=== PATIENT | male | born 1955 | race Caucasian/White ===

== ENCOUNTER 2018-10-04 11:37 | Day surgery (SDC) | payer BC ==
[~2018-10-04 11:37] MED LIST: Sodium Chloride 0.9% 1,000 ML IV SCH
--- NOTE | 2018-10-04 20:25 | OR ---
DATE OF OPERATION: 10/04/2018 PREOPERATIVE DIAGNOSIS: Epigastric pain. POSTOPERATIVE DIAGNOSIS: Epigastric pain. PROCEDURE: EGD. ANESTHESIA: MAC. ESTIMATED BLOOD LOSS: None. COMPLICATIONS: None. INDICATION FOR PROCEDURE: The patient is a 63-year-old male who over the past several months has had increasing epigastric pain, usually preceded with exercise. The patient does take a Zantac daily. He apparently takes other antacids as well with some minimal relief. The patient has also had a recent cardiac stent and is currently on Plavix. DESCRIPTION OF PROCEDURE: Informed consent was obtained from the patient. The patient was taken to the operating room, placed on table in the left lateral decubitus position. Monitored general anesthesia care was administered. Esophagus scope then advanced through the mouth, directed towards the duodenum. Second portion of duodenum was reached. The patient did have some moderate duodenitis in the bulb and second portions of the duodenum. No biopsies were taken due to the Plavix. The patient did have some mild gastritis present as well. No bleeding ulcers identified in either duodenum or stomach. Retroflexion performed in the stomach and was unremarkable there. Distal esophagus also appeared normal. No signs of esophagitis there. Gastroscope was then withdrawn slowly. The patient tolerated the procedure well and was brought to recovery room in good condition. FINDINGS: Moderate duodenitis and mild gastritis. RECOMMENDATIONS: We will start omeprazole daily for the next 2 months. The patient continues to have problems, would recommend EGD once the patient is able to be off Plavix for biopsies at that time. KAIDEN /[id number]
== END 2018-10-04 15:40 | disposition home or self-care (01) ==
LOC: LB.SDS 11:37
PROVIDERS: ATTEND Surgery
DX: K29.70 Gastritis, unspecified, without bleeding (principal); K29.80 Duodenitis without bleeding; K21.9 Gastro-esophageal reflux disease without esophagitis; Z79.899 Other long term (current) drug therapy; Z91.013 Allergy to seafood; Z91.048 Other nonmedicinal substance allergy status
CPT/HCPCS: 82962; J7030

== ENCOUNTER 2019-03-15 10:43 | Emergency (ER) | payer BC ==
--- NOTE | 2019-03-15 12:01 | EDM.PDOC ---
ED HPI GENERAL MEDICAL PROBLEM - General Chief Complaint: Abdominal Pain Stated Complaint: ILL Time Seen by Provider: 03/15/19 10:45 Source of Information: Reports: Patient History Limitations: Reports: No Limitations - History of Present Illness INITIAL COMMENTS - FREE TEXT/NARRATIVE: According to patient he has been having epigastric pain on and off for past 6 months now, but over the past 1 wk has got worse. pain is in the epigastric region and radiates into the right upper quadrant. Gets very sharp at times. Asso with some heart green and belching. Some times feels nausea, but no vomiting. No radiation of pain. rates his pain at 6/10 now in the emergency room. He has not noticed any change in pain with food intake. No chest pain, shortness of breath, diaphoresis. He does have CAD. He claims he does have loose stools on and off. He did have upper GI scope and was noted to have some duodenal erosions, but biopsy not duodenum to him being on Plavix. Onset Date: 03/08/19 Duration: Getting Worse, Waxing/Waning Location: Reports: Abdomen Quality: Reports: Ache Severity: Moderate Improves with: Reports: None Worsens with: Reports: None Associated Symptoms: Reports: Nausea/Vomiting. Denies: Confusion, Chest Pain, Cough, Diaphoresis, Fever/Chills, Loss of Appetite, Rash, Seizure, Shortness of Breath, Syncope, Weakness - Related Data Allergies Allergy/AdvReac Type Severity Reaction Status Date / Time iodine Allergy Anaphylactic Verified 03/15/19 10:55 Shock shellfish derived Allergy Anaphylactic Verified 03/15/19 10:55 Shock Home Meds: Home Meds Aspirin [Lise Chewable] 81 mg PO DAILY 07/13/18 [History] Clopidogrel Bisulfate [Clopidogrel] 75 mg PO DAILY 07/13/18 [History] Lisinopril 20 mg PO DAILY 07/13/18 [History] Metoprolol Tartrate 50 mg PO BID 07/13/18 [History] Omeprazole 20 mg PO DAILY 03/15/19 [History] Past Medical History HEENT History: Reports: Impaired Vision Cardiovascular History: Reports: High Cholesterol, Hypertension, Stents Gastrointestinal History: Reports: GERD Musculoskeletal History: Reports: Back Pain, Chronic Neurological History: Reports: None Endocrine/Metabolic History: Reports: Diabetes, Type II - Past Surgical History HEENT Surgical History: Reports: None Cardiovascular Surgical History: Reports: Coronary Artery Stent GI Surgical History: Reports: None Neurological Surgical History: Reports: C-Spine, Discectomy Musculoskeletal Surgical History: Reports: None Social & Family History - Family History Family Medical History: Noncontributory - Caffeine Use Caffeine Use: Reports: Coffee, Soda ED ROS GENERAL - Review of Systems Review Of Systems: See Below Constitutional: Reports: Weakness. Denies: Fever, Chills, Diaphoresis HEENT: Denies: Contact Lenses, Rhinitis, Throat Pain Respiratory: Denies: Shortness of Breath, Pleuritic Chest Pain, Cough, Sputum Cardiovascular: Denies: Chest Pain, Lightheadedness Endocrine: Denies: Fatigue GI/Abdominal: Reports: Abdominal Pain, Diarrhea, Flatus, Nausea. Denies: Constipation, Hematemesis, Hematochezia, Melena, Vomiting : Denies: Dysuria, Frequency Musculoskeletal: Denies: Joint Pain, Joint Swelling Skin: Denies: Bruising, Pruritis, Rash Neurological: Denies: Confusion, Dizziness, Headache, Numbness, Tingling ED EXAM, GENERAL - Physical Exam Exam: See Below Exam Limited By: No Limitations General Appearance: Alert, WD/WN, No Apparent Distress Eye Exam: Bilateral Eye: EOMI, PERRL Ears: Normal External Exam, Normal Canal, Hearing Grossly Normal, Normal TMs Ear Exam: Bilateral Ear: Auricle Normal, Canal Normal, TM normal Nose: Normal Inspection, Normal Mucosa, No Blood Throat/Mouth: Normal Inspection, Normal Lips, Normal Teeth, Normal Gums, Normal Oropharynx, Normal Voice, No Airway Compromise Head: Atraumatic, Normocephalic Neck: Normal Inspection, Supple, Non-Tender, Full Range of Motion Respiratory/Chest: No Respiratory Distress, Lungs Clear, Normal Breath Sounds, No Accessory Muscle Use, Chest Non-Tender Cardiovascular: Normal Peripheral Pulses, Regular Rate, Rhythm, No Edema, No Gallop, No JVD, No Murmur, No Rub GI/Abdominal: Normal Bowel Sounds, Soft, No Organomegaly, No Distention, No Abnormal Bruit, No Mass, Pelvis Stable, Tender (epigastirc region and the RUQ at the right MCL. No mass felt.). No: Guarding, Rigid, Rebound EKG INTERPRETATION Rhythm: NSR [employer]: Normal P-Wave: Present QRS: Normal QT: Normal Course - Vital Signs Text/Narrative:: Pt has chronic epigastric pain for 9 months, which has got worse over the past 1 wk. Most of the pain description is in the epigastric region with radiation to right upper quadrant. On clinical exam he does have RUQ at the right MCL. This is consistent with gall bladder colic. Pt does have significant history of CAD hence EKG was done which is in NSR. Also CBC, CMP and troponin are negative, and this has been worsening epigastric pain for 1 wk now, rule out acute cardiac injury. His CT abdomen is shows gall bladder stones. I have discussed with patietn. Advised to stay on bland low fat diet. Followup with Dr. Muñoz( general surgeon) for interval lap cholecystectomy . There are no acute abdominal signs. For now advised bland low fat diet. - Orders/Labs/Meds Orders: Active Orders 24 hr Category Date Time Status EKG Documentation Completion [RC] ASDIRECTED Care 03/15/19 11:04 Active Labs: Laboratory Tests 03/15/19 03/15/19 Range/Units 11:25 11:25 WBC 7.3 (4.0-11.0) K/uL RBC 4.76 (4.50-6.50) M/uL Hgb 14.9 (13.0-18.0) g/dL Hct 43.3 (40.0-54.0) % MCV 91 (76-96) fL MCH 31.3 (27.0-32.0) pg MCHC 34.4 (31.0-35.0) g/dL RDW 14.2 (11.0-16.0) % Plt Count 160 (150-400) K/uL MPV 11.0 H (6.0-10.0) fL Neut % (Auto) 65.3 (45.0-70.0) % Lymph % (Auto) 25.4 (20.0-40.0) % Hancock % (Auto) 7.3 (3.0-10.0) % Eos % (Auto) 1.7 (1.0-5.0) % Baso % (Auto) 0.3 (0.0-0.5) % Neut # (Auto) 4.74 (2.00-7.50) K/uL Lymph # (Auto) 1.84 (1.50-4.00) K/uL Hancock # (Auto) 0.53 (0.20-0.80) K/uL Eos # (Auto) 0.12 (0.04-0.40) K/uL Baso # (Auto) 0.02 (0.02-0.10) K/uL Sodium 139 (136-145) mmol/L Potassium 4.4 (3.5-5.1) mmol/L Chloride 102 (98-107) mmol/L Carbon Dioxide 27.6 (21.0-32.0) mmol/L Anion Gap 13.8 (5.0-15.0) mmol/L BUN 14 D (8-26) mg/dL Creatinine 1.07 (0.70-1.30) mg/dL Est Cr Clr Drug Dosing TNP Estimated GFR (MDRD) > 60 (>60) MLS/MIN BUN/Creatinine Ratio 13.1 (6-25) Glucose 121 H (74-100) mg/dL Calcium 9.5 (8.5-10.1) mg/dL Total Bilirubin 0.4 (0.0-1.0) mg/dL AST 17 (15-37) U/L ALT 33 (12-78) U/L Alkaline Phosphatase 67 (46-116) U/L Troponin I < 0.017 (0.000-0.060) ng/mL Total Protein 8.4 H (6.4-8.2) g/dL Albumin 4.2 (3.4-5.0) g/dL Globulin 4.2 (2.2-4.2) g/dL Albumin/Globulin Ratio 1.0 (0.8-2.0) Lipase 212 D (73-393) U/L Departure - Departure Time of Disposition: 12:15 Disposition: Home, Self-Care 01 Condition: Fair Clinical Impression: Gall stones - Discharge Information *PRESCRIPTION DRUG MONITORING PROGRAM REVIEWED*: Not Applicable *COPY OF PRESCRIPTION DRUG MONITORING REPORT IN PATIENT FELIPA: Not Applicable Instructions: Heart-Healthy Eating Plan, [id number], Cholelithiasis, Easy-to- Read, Cholelithiasis, Laparoscopic Cholecystectomy Referrals: PCP,None [Primary Care Provider] - Forms: ED Department Discharge, ED Return to Work/School Form - Problem List & Annotations (1) Gall stones SNOMED Code(s): 832343453 Code(s): K80.20 - CALCULUS OF GALLBLADDER W/O CHOLECYSTITIS W/O OBSTRUCTION Status: Acute Current Visit: Yes - Problem List Review Problem List Initiated/Reviewed/Updated: Yes - My Orders Last 24 Hours: My Active Orders 03/15/19 11:04 EKG Documentation Completion [RC] ASDIRECTED - Assessment/Plan Last 24 Hours: My Active Orders 03/15/19 11:04 EKG Documentation Completion [RC] ASDIRECTED Assessment:: Gall stones with gall bladder colic Plan: Pt has chronic epigastric pain for 9 months, which has got worse over the past 1 wk. Most of the pain description is in the epigastric region with radiation to right upper quadrant. On clinical exam he does have RUQ at the right MCL. This is consistent with gall bladder colic. Pt does have significant history of CAD hence EKG was done which is in NSR. Also CBC, CMP and troponin are negative, and this has been worsening epigastric pain for 1 wk now, rule out acute cardiac injury. His CT abdomen is shows gall bladder stones. I have discussed with pradeepn. Advised to stay on bland low fat diet. Followup with Dr. Muñoz( general surgeon) for interval lap cholecystectomy . There are no acute abdominal signs. For now advised bland low fat diet.
--- NOTE | 2019-03-15 12:18 | CT ---
DATE OF SERVICE: 03/15/2019 CLINICAL DATA: Epigastric pain Unenhanced abdomen CT: Multislice acquisition through the abdomen without IV or oral contrast was performed. No priors. The lung bases are clear. There are minimal coronary artery calcifications. The unenhanced liver appears normal. No focal hepatic lesions. There are multiple gallstones noted in the region of the neck of the gallbladder. The gallbladder is not distended. No pericholecystic fluid. The spleen appears normal. The pancreas appears normal. The right and left adrenals appear normal. The right and left kidneys appear normal. No nephrocalcinosis or nephrolithiasis. No hydronephrosis or hydroureter. No free air. No free fluid. No dilated loops of bowel. No adenopathy. No aortic aneurysm. There is an umbilical hernia containing fat. Impression: Cholelithiasis. Other findings as discussed above. MTDD
== END 2019-03-15 12:18 | disposition home or self-care (01) ==
LOC: LB.ED 10:43
DX: K80.20 Calculus of gallbladder without cholecystitis without obstruction (principal); I10 Essential (primary) hypertension; K21.9 Gastro-esophageal reflux disease without esophagitis; E11.9 Type 2 diabetes mellitus without complications; Z79.82 Long term (current) use of aspirin; Z79.899 Other long term (current) drug therapy; Z91.013 Allergy to seafood; Z88.8 Allergy status to other drugs, medicaments and biological substances; Z95.5 Presence of coronary angioplasty implant and graft
CPT/HCPCS: 36415; 74150; 80053; 83690; 84484; 85025; 93005; 99284-25

== ENCOUNTER 2019-08-08 08:53 | Day surgery (SDC) | payer BC ==
[~2019-08-08 08:53] MED LIST changes: +Metoclopramide 10 MG/2 ML SDV IV PRN
[2019-08-08] MEDS ORDERED: Propofol 1,000 MG/100 ML SDV ONE (11:00)
[2019-08-08 11:50] VITALS: BP 116/75; PULSE 63
--- NOTE | 2019-08-08 12:30 | OR ---
DATE OF OPERATION: 08/08/2019 SURGEON: Luis Fernando Thomason MD PREOPERATIVE DIAGNOSES: Screening colonoscopy and epigastric pain. POSTOPERATIVE DIAGNOSES: Screening colonoscopy and epigastric pain. PROCEDURE: Esophagogastroduodenoscopy with biopsy and colonoscopy with polypectomy. ESTIMATED BLOOD LOSS: Minimal. COMPLICATIONS: None. ANESTHESIA: MAC. INDICATIONS FOR THE PROCEDURE: The patient is a 63-year-old male here today for EGD and colonoscopy. He has never had a colonoscopy before. Denies any change in bowel habits. Also here for a repeat EGD. Last had an EGD about 10 months ago, was found to have duodenitis and gastritis, was on Plavix at the time, so no biopsies taken. The patient is now complaining of recurrent epigastric pain. He is here for repeat EGD. DESCRIPTION OF PROCEDURE: Informed consent was obtained from the patient. The patient was taken to the operating room, placed on the table in a left lateral decubitus position. Monitored anesthesia care was administered. Esophagogastroscope then advanced through the mouth, directed toward the duodenum. Duodenum was reached and appeared normal. No signs of inflammation. No ulcers. Cold forceps biopsy of this was taken here to check for celiac disease. Withdrew back into the gastric antrum. Gastric antrum also appeared to be normal. No signs of gastritis. No ulcers present. The cold forceps biopsy here was taken for check for H pylori. Retroflexion performed in the stomach was also otherwise unremarkable. On the way out, distal esophagus also was unremarkable. No signs of esophagitis. No signs of hiatal hernia. Esophagogastroscope then withdrawn. We then proceeded with colonoscopy. Digital rectal exam performed and was normal. Colonoscope then advanced through the anus, directed toward the cecum. Cecum was reached by identification of appendiceal orifice and ileocecal valve. Colonoscope then slowly withdrawn. He did have 1 small pedunculated polyp just inside the anus. This was removed with hot snare cautery and the polyp was retrieved. At the end of the case, the patient tolerated the procedure well and was brought to recovery room in good condition. FINDINGS: Normal EGD. We will follow up on biopsies. Would recommend to continue current medications for that. For his colonoscopy, we would recommend repeat surveillance colonoscopy in 5 years due to polyps. CASSANDRA/MARTIR /[id number]
== END 2019-08-08 12:45 | disposition home or self-care (01) ==
LOC: LB.SDS 08:53
PROVIDERS: ATTEND Surgery
DX: Z12.11 Encounter for screening for malignant neoplasm of colon (principal); D12.7 Benign neoplasm of rectosigmoid junction; K29.50 Unspecified chronic gastritis without bleeding; K21.9 Gastro-esophageal reflux disease without esophagitis; E11.9 Type 2 diabetes mellitus without complications; Z91.013 Allergy to seafood; Z88.5 Allergy status to narcotic agent; Z91.041 Radiographic dye allergy status
CPT/HCPCS: 43239; 43246; 45385; 82962; 88305; G0121; J2704

== ENCOUNTER 2019-09-06 08:32 | Emergency (ER) | payer BC ==
--- NOTE | 2019-09-06 09:41 | CR ---
DATE OF SERVICE: 09/06/19 CLINICAL DATA: Chest pain. AP CHEST: Comparison made to a prior exam dated 03/12/19. The heart size is normal. There is a calcified nodule in the left lower lung consistent with prior granulomatous disease. The lungs otherwise clear. No pneumothorax. No pleural effusions. No evidence of acute intrathoracic disease. [id number] [facility]
--- NOTE | 2019-09-06 13:55 | ER ---
REASON FOR EMERGENCY ROOM VISIT: Chest pain. HISTORY: This is a 63-year-old man, who has a history of coronary artery disease with stenting of a single LAD lesion in March of 2018. He was brought in by his after experiencing an episode of chest pain that initially woke him up approximately 1-1/2 hours prior to his ER visit. It was initially located in the lower anterior substernal and epigastric area and only lasted a few minutes and spontaneously resolved only to return about a half an hour later. His , who is a registered nurse, gave him sublingual nitroglycerin and his pain waned. By the time he arrived in the emergency room, he was not experiencing any more chest pain. He did not have any nausea or diaphoresis. The pain did not radiate down his arm. The patient had a normal stress test in last December. PAST MEDICAL HISTORY: Significant for; 1. Coronary artery disease with stenting (see above). 2. Hypertension. 3. GERD. 4. History of duodenal ulcer or gastritis. 5. Type 2 diabetes. 6. Hypercholesterolemia. 7. Cholecystectomy for cholelithiasis in March of 2019. MEDICATIONS: Reviewed, please see EMR. They include; 1. Lisinopril. 2. Omeprazole. 3. Baby aspirin. 4. Metoprolol. SOCIAL HISTORY: He is a nonsmoker. Drinks occasionally and lives at home with his . REVIEW OF SYSTEMS: Pertinent positives and negatives as listed in the HPI. PHYSICAL EXAMINATION: GENERAL: He is alert and in no acute distress. He does not appear diaphoretic. VITAL SIGNS: He is afebrile. Blood pressure 135/85, pulse 66, respirations 18, O2 sats 99% on room air. HEENT: No scleral icterus is noted. Oropharynx is normal. NECK: Supple. No JVD. CHEST: Clear to auscultation with good air exchange bilaterally and no wheezes, rhonchi, or rales. CARDIAC: Regular rate without murmur. No rub is heard. ABDOMEN: Soft, nondistended, nontender. No hepatosplenomegaly. No palpable masses. EXTREMITIES: Normal pulses. No edema. NEUROLOGIC: Cranial nerves 2 through 12 intact. Muscle strength, bulk, and tone are normal and symmetrical. He is able to move all 4 extremities. Sensation is normal to crude touch. SKIN: No rashes. LABORATORY DATA: CBC was within normal limits. His CMP was normal except for his glucose that was elevated at 144. His troponin 1 was less than 0.013. A 12-lead EKG showed a normal sinus rhythm with a right bundle branch block, but no acute changes. His chest x-ray was unremarkable with no active pulmonary disease. FURTHER EMERGENCY ROOM COURSE: He continued to be pain-free throughout his time in the emergency room. He was given 3 additional baby aspirin upon arrival and the above-mentioned labs were obtained. Impression is chest pain, resolved. 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 Given his normal troponin and EKG and the absence of any existing chest pain, I felt it was sensible to arrange for him to have a stress test, and a followup with either his provider, Dr. Lugo or a drive thru order taker if the drive thru order taker will be here for consultations in a fairly short period of time. His being a registered nurses, can monitor him and certainly she knows that if should he have recurrent episodes of pain, to bring him back. All questions were answered. I think the sensible thing at this juncture would be to have him followed with his drive thru order taker after stress testing and this is being arranged. They understand and agree with this plan. WILFREDO /[id number]
[2019-09-11] MEDS ORDERED: Aspirin 81 MG Tab.Chew PO ONE (07:50)
== END 2019-09-06 10:00 | disposition home or self-care (01) ==
LOC: LB.ED 08:32
DX: R07.9 Chest pain, unspecified (principal); I10 Essential (primary) hypertension; E11.9 Type 2 diabetes mellitus without complications
CPT/HCPCS: 36415; 71045; 80053; 84484; 85025; 93005; 99285-25

== ENCOUNTER 2019-12-21 16:33 | Observation (INO) | payer BC ==
[2019-12-21] MEDS ORDERED: Aspirin 81 MG Tab.Chew PO ONE (16:56)
[2019-12-21] MEDS ORDERED: Sodium Chloride 0.9% 10 ML Syringe FLUSH PRN (16:56)
[2019-12-21] MEDS ORDERED: Isosorbide Mononitrate 30 MG Tab.ER PO ONE (18:03)
[2019-12-21] MEDS ORDERED: Metoprolol Tartrate 50 MG Tab PO SCH (18:15)
[2019-12-21] MEDS: Metoprolol Tartrate 50 MG Tab PO SCH (20:02)
[2019-12-22] MEDS ORDERED: Omeprazole 20 MG Cap.CR PO SCH (08:00)
[2019-12-22] MEDS ORDERED: Isosorbide Mononitrate 30 MG Tab.ER PO SCH (08:00)
[2019-12-22] MEDS ORDERED: Lisinopril 20 MG Tab PO SCH (08:00)
[2019-12-22] MEDS: Metoprolol Tartrate 50 MG Tab PO SCH (08:16)
--- NOTE | 2019-12-22 09:52 | CR ---
DATE OF SERVICE: 12/21/19 CLINICAL DATA: chest pain PA AND LATERAL CHEST: Comparison is made to a prior exam dated 09/06/19. The heart size is normal. There is a densely calcified nodule in the left lower lobe, consistent with prior granulomatous disease. The lungs are otherwise clear. No pneumothorax. No pleural effusions. There is degenerative disc disease throughout the thoracic spine. No evidence of acute intrathoracic disease. [id number] [facility]
[2019-12-22] MEDS ORDERED: Metoprolol Tartrate 50 MG Tab PO SCH (20:00)
--- NOTE | 2019-12-23 07:51 | EDM.PDOC ---
ED HPI GENERAL MEDICAL PROBLEM - General Chief Complaint: General Stated Complaint: CHEST PAIN Time Seen by Provider: 12/21/19 16:40 Source of Information: Reports: Patient History Limitations: Reports: No Limitations - History of Present Illness INITIAL COMMENTS - FREE TEXT/NARRATIVE: Patient is a 64 yo white male with history of CAD and stenting in March of 2017 presents with history of chest pain at times for years that he describes as a sharp pain that last for 2-3 seconds . Typically he rates pain 3-4/10. Today had episode of sharp pain then developed chest pressure type pain in left side of his chest that lasted for 45 minutes until he took a Ntg tablet sl. Tokk several minutes to dissolve under his tongue but pain cleared within ten minutes of taking ntg . Pain cleared at time of arrival in the ED. No pain or pressure at time of arrival or during evaluation in the ED. 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 Abdominal Pain Score (Numeric/FACES): 2 - Related Data Allergies Allergy/AdvReac Type Severity Reaction Status Date / Time iodine Allergy Anaphylactic Verified 12/21/19 18:34 Shock shellfish derived Allergy Anaphylactic Verified 12/21/19 18:34 Shock Home Meds: Home Meds Aspirin [Lise Chewable] 81 mg PO DAILY 07/13/18 [History] Metoprolol Tartrate 50 mg PO BID 07/13/18 [History] Omeprazole 20 mg PO DAILY 03/15/19 [History] lisinopriL [Lisinopril] 20 mg PO DAILY 09/06/19 [History] Past Medical History HEENT History: Reports: Impaired Vision Cardiovascular History: Reports: High Cholesterol, Hypertension, Stents Gastrointestinal History: Reports: GERD Musculoskeletal History: Reports: Back Pain, Chronic Neurological History: Reports: None Endocrine/Metabolic History: Reports: Diabetes, Type II - Past Surgical History HEENT Surgical History: Reports: None Cardiovascular Surgical History: Reports: Coronary Artery Stent GI Surgical History: Reports: None Neurological Surgical History: Reports: C-Spine, Discectomy Musculoskeletal Surgical History: Reports: None Social & Family History - Family History Family Medical History: Noncontributory - Tobacco Use Smoking Status *Q: Former Smoker Used Tobacco, but Quit: Yes Month/Year Tobacco Last Used: 2010 - Caffeine Use Caffeine Use: Reports: Coffee, Soda - Alcohol Use Days Per Week of Alcohol Use: 3 Number of Drinks Per Day: 1 Total Drinks Per Week: 3 - Recreational Drug Use Recreational Drug Use: No ED ROS GENERAL - Review of Systems Review Of Systems: See Below Constitutional: Denies: Fever, Chills, Malaise HEENT: Reports: No Symptoms Respiratory: Denies: Shortness of Breath, Wheezing, Cough Cardiovascular: Reports: Chest Pain. Denies: Lightheadedness, Palpitations, Syncope Endocrine: Denies: Fatigue GI/Abdominal: Denies: Abdominal Pain, Nausea, Vomiting : Denies: Dysuria, Flank Pain, Frequency Musculoskeletal: Reports: No Symptoms Skin: Reports: No Symptoms Neurological: Reports: No Symptoms Psychiatric: Reports: No Symptoms Hematologic/Lymphatic: Reports: No Symptoms Immunologic: Reports: No Symptoms ED EXAM, GENERAL - Physical Exam Exam: See Below General Appearance: Alert, WD/WN, No Apparent Distress Ears: Normal External Exam Nose: Normal Inspection, Normal Mucosa, No Blood Throat/Mouth: Normal Inspection, Normal Lips, Normal Oropharynx Head: Atraumatic, Normocephalic Neck: Normal Inspection, Supple, Other Respiratory/Chest: No Respiratory Distress, Lungs Clear, Normal Breath Sounds, Chest Non-Tender Cardiovascular: Normal Peripheral Pulses, Regular Rate, Rhythm, No Edema, No JVD , No Murmur GI/Abdominal: Soft, Non-Tender, No Distention, No Mass, Pelvis Stable Rectal (Males) Exam: Normal Exam Back Exam: Normal Inspection, Full Range of Motion, Decreased Range of Motion. No: CVA Tenderness (R) Extremities: Normal Inspection, Normal Range of Motion, Non-Tender, No Pedal Edema Neurological: Alert, Oriented, Normal Cognition, Normal Gait, No Motor/Sensory Deficits Psychiatric: Normal Affect, Normal Mood Skin Exam: Warm, Dry, Intact, Normal Color Lymphatic: No Adenopathy EKG INTERPRETATION EKG Date: 12/21/19 Time: 17:00 Rhythm: NSR P-Wave: Present QRS: Normal QT: Normal NE/PQ Interval: 176 Comparison: No Change (NS/RBBB, No acute infarct or ischemia) Course - Vital Signs Last Recorded V/S: Last Vital Signs Temp 97.9 F 12/22/19 08:15 Pulse 68 12/22/19 08:16 Resp 18 12/22/19 08:15 BP 117/82 12/22/19 08:17 Pulse Ox 97 12/22/19 08:15 - Orders/Labs/Meds Labs: Laboratory Tests 12/21/19 12/21/19 12/21/19 Range/Units 17:00 17:00 17:00 WBC 8.1 (4.0-11.0) K/uL RBC 4.69 (4.50-6.50) M/uL Hgb 14.7 (13.0-18.0) g/dL Hct 42.2 (40.0-54.0) % MCV 90 (76-96) fL MCH 31.3 (27.0-32.0) pg MCHC 34.8 (31.0-35.0) g/dL RDW 13.8 (11.0-16.0) % Plt Count 183 (150-400) K/uL MPV 11.0 H (6.0-10.0) fL Neut % (Auto) 66.1 (45.0-70.0) % Lymph % (Auto) 25.3 (20.0-40.0) % [place] % (Auto) 7.3 (3.0-10.0) % Eos % (Auto) 1.2 (1.0-5.0) % Baso % (Auto) 0.1 (0.0-0.5) % Neut # (Auto) 5.37 (2.00-7.50) K/uL Lymph # (Auto) 2.06 (1.50-4.00) K/uL [place] # (Auto) 0.59 (0.20-0.80) K/uL Eos # (Auto) 0.10 (0.04-0.40) K/uL Baso # (Auto) 0.01 L (0.02-0.10) K/uL PT 11.1 (9.0-11.5) sec INR 1.1 (1.0-3.5) Sodium 141 (136-145) mmol/L Potassium 4.0 (3.5-5.1) mmol/L Chloride 104 (98-107) mmol/L Carbon Dioxide 23.6 (21.0-32.0) mmol/L Anion Gap 17.4 H (5.0-15.0) mmol/L BUN 15 (8-26) mg/dL Creatinine 1.28 (0.70-1.30) mg/dL Est Cr Clr Drug Dosing 63.15 mL/min Estimated GFR (MDRD) 56 L (>60) MLS/MIN BUN/Creatinine Ratio 11.7 (6-25) Glucose 144 H (74-100) mg/dL Calcium 9.3 (8.5-10.1) mg/dL Total Bilirubin 0.5 (0.0-1.0) mg/dL AST 17 (15-37) U/L ALT 33 (12-78) U/L Alkaline Phosphatase 59 (46-116) U/L Troponin I < 0.017 (0.000-0.060) ng/mL Total Protein 8.0 (6.4-8.2) g/dL Albumin 4.1 (3.4-5.0) g/dL Globulin 3.9 (2.2-4.2) g/dL Albumin/Globulin Ratio 1.1 (0.8-2.0) Meds: Medications Discontinued Medications Generic Name Dose Route Start Last Admin Trade Name Freq PRN Reason Stop Dose Admin Aspirin 324 mg 12/21/19 16:56 12/21/19 16:51 Aspirin PO 12/21/19 16:57 324 mg ONETIME ONE Administration Aspirin 81 mg 12/23/19 08:00 Aspirin PO DAILY [facility] Isosorbide Mononitrate 30 mg 12/21/19 18:03 12/21/19 18:37 Imdur PO 12/21/19 18:04 30 mg ONETIME ONE Administration Isosorbide Mononitrate 30 mg 12/22/19 08:00 12/22/19 08:15 Imdur PO 30 mg DAILY [facility] Administration Isosorbide Mononitrate 30 mg 12/23/19 08:00 Imdur PO DAILY [facility] Lisinopril 20 mg 12/22/19 08:00 12/22/19 08:17 Prinivil PO 20 mg DAILY [facility] Administration Lisinopril 20 mg 12/23/19 08:00 Prinivil PO DAILY [facility] Metoprolol Tartrate 50 mg 12/21/19 18:15 12/21/19 23:26 Lopressor PO Not Given Q12H [facility] Metoprolol Tartrate 50 mg 12/21/19 20:00 12/22/19 08:16 Lopressor PO 50 mg Q12H [facility] Administration Metoprolol Tartrate 50 mg 12/22/19 20:00 Lopressor PO BID [facility] Omeprazole 20 mg 12/22/19 08:00 12/22/19 08:17 Omeprazole PO 20 mg DAILY [facility] Administration Omeprazole 20 mg 12/23/19 08:00 Omeprazole PO DAILY [facility] Sodium Chloride 10 ml 12/21/19 16:56 12/21/19 16:45 Saline Flush FLUSH 10 ml ASDIRECTED PRN Administration Keep Vein Open - Re-Assessments/Exams Free Text/Narrative Re-Assessment/Exam: 12/23/19 08:06 Patient was pain free while in ED Patient was admitted for observation and repeat EKG 's and troponins Departure - Departure Time of Disposition: 18:15 Disposition: Refer to Observation Condition: Good Clinical Impression: Chest pain Qualifiers: Chest pain type: other chest pain Qualified Code(s): R07.89 - Other chest pain ; R07.8 - Other chest pain - Discharge Information *PRESCRIPTION DRUG MONITORING PROGRAM REVIEWED*: Not Applicable Sepsis Event Note - Evaluation Sepsis Screening Result: No Definite Risk - Focused Exam Date Exam was Performed: 12/23/19 Time Exam was Performed: 09:31 - Problem List & Annotations (1) Chest pain SNOMED Code(s): 43256955 Code(s): R07.9 - CHEST PAIN, UNSPECIFIED Status: Acute Qualifiers: Chest pain type: other chest pain Qualified Code(s): R07.89 - Other chest pain; R07.8 - Other chest pain - Problem List Review Problem List Initiated/Reviewed/Updated: Yes
[2019-12-23] MEDS ORDERED: Omeprazole 20 MG Cap.CR PO SCH (08:00)
[2019-12-23] MEDS ORDERED: Aspirin 81 MG Tab.Chew PO SCH (08:00)
[2019-12-23] MEDS ORDERED: Lisinopril 20 MG Tab PO SCH (08:00)
[2019-12-23] MEDS ORDERED: Isosorbide Mononitrate 30 MG Tab.ER PO SCH (08:00)
--- NOTE | 2019-12-23 09:37 | PCM.PN ---
- General Info Date of Service: 12/22/19 Subjective Update: NO further chest pressure. NO SOB Vitals signs stable, Afebrile Lungs clear . 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 grocery worker in [facility] to have close follow up with cardiology in next few day Patient instructed to return for recurrence of chest pain if not relieved with ntg sl Will start Imdur 30 mg in am daily Functional Status: Reports: Pain Controlled - Patient Data Vitals - Most Recent: Last Vital Signs Temp 97.9 F 12/22/19 08:15 Pulse 68 12/22/19 08:16 Resp 18 12/22/19 08:15 BP 117/82 12/22/19 08:17 Pulse Ox 97 12/22/19 08:15 Weight - Most Recent: 112 kg Reece Results Last 24 Hours: Microbiology 12/21/19 20:31 MRSA Surveillance Culture - Final Nares, Unspecified NO MRSA ISOLATED Med Orders - Current: Current Medications Discontinued Medications Aspirin (Aspirin) 324 mg PO ONETIME ONE Stop: 12/21/19 16:57 Last Admin: 12/21/19 16:51 Dose: 324 mg Aspirin (Aspirin) 81 mg PO DAILY [facility] Isosorbide Mononitrate (Imdur) 30 mg PO ONETIME ONE Stop: 12/21/19 18:04 Last Admin: 12/21/19 18:37 Dose: 30 mg Isosorbide Mononitrate (Imdur) 30 mg PO DAILY [facility] Last Admin: 12/22/19 08:15 Dose: 30 mg Isosorbide Mononitrate (Imdur) 30 mg PO DAILY [facility] Lisinopril (Prinivil) 20 mg PO DAILY [facility] Last Admin: 12/22/19 08:17 Dose: 20 mg Lisinopril (Prinivil) 20 mg PO DAILY [facility] Metoprolol Tartrate (Lopressor) 50 mg PO Q12H [facility] Last Admin: 12/21/19 23:26 Dose: Not Given Metoprolol Tartrate (Lopressor) 50 mg PO Q12H [facility] Last Admin: 12/22/19 08:16 Dose: 50 mg Metoprolol Tartrate (Lopressor) 50 mg PO BID [facility] Omeprazole (Omeprazole) 20 mg PO DAILY [facility] Last Admin: 12/22/19 08:17 Dose: 20 mg Omeprazole (Omeprazole) 20 mg PO DAILY [facility] Sodium Chloride (Saline Flush) 10 ml FLUSH ASDIRECTED PRN PRN Reason: Keep Vein Open Last Admin: 12/21/19 16:45 Dose: 10 ml Sepsis Event Note - Evaluation Sepsis Screening Result: No Definite Risk - Problem List & Annotations (1) Chest pain SNOMED Code(s): 10113136 Code(s): R07.9 - CHEST PAIN, UNSPECIFIED Status: Acute Qualifiers: Chest pain type: other chest pain Qualified Code(s): R07.89 - Other chest pain; R07.8 - Other chest pain - Problem List Review Problem List Initiated/Reviewed/Updated: Yes - My Orders Last 24 Hours: My Active Orders 12/22/19 09:28 Ready for Discharge [RC] PER UNIT ROUTINE
== END 2019-12-22 09:45 | disposition home or self-care (01) ==
LOC: LB.ED 16:33 → LB.MS 18:00 → UNDOADMOB 18:00 → LB.MS 18:02 → UNDODISOB 12-22 09:45
PROVIDERS: ADMIT Emergency Medicine; ATTEND Emergency Medicine
DX: R07.89 Other chest pain (principal); E78.00 Pure hypercholesterolemia, unspecified; K21.9 Gastro-esophageal reflux disease without esophagitis; I10 Essential (primary) hypertension; E11.9 Type 2 diabetes mellitus without complications; I25.10 Atherosclerotic heart disease of native coronary artery without angina pectoris; Z95.5 Presence of coronary angioplasty implant and graft; Z87.891 Personal history of nicotine dependence; Z91.041 Radiographic dye allergy status; Z91.013 Allergy to seafood; Z79.82 Long term (current) use of aspirin; Z79.899 Other long term (current) drug therapy
CPT/HCPCS: 36415; 71046; 80053; 83735; 84484; 85025; 85610; 93005; 99217; 99218; 99285-25; A9270-GY; G0378

== ENCOUNTER 2020-08-16 23:10 | Observation (INO) | payer BC ==
--- NOTE | 2020-08-16 23:29 | EDM.PDOC ---
ED HPI GENERAL MEDICAL PROBLEM - General Chief Complaint: Chest Pain Stated Complaint: chest pain Time Seen by Provider: 08/16/20 23:10 Source of Information: Reports: Patient History Limitations: Reports: No Limitations - History of Present Illness INITIAL COMMENTS - FREE TEXT/NARRATIVE: 64 year old male with PMH of cardiac stent, RBBB, hyperlipidemia, presents with left sided chest pain that started at 2210. He took 3 SL NTG without any relief. Patient has had several similar episodes in the past few months. The pain is left sided with radiation into left shoulder. The pain is not reproducable and does not radiate to his back. Denies any SOB, cough, fever, nausea. He was started on amytriptline last month for anxiety d/t frequent episodes of CP with unclear cause. 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 - Related Data Allergies Allergy/AdvReac Type Severity Reaction Status Date / Time iodine Allergy Anaphylactic Verified 08/17/20 05:28 Shock shellfish derived Allergy Anaphylactic Verified 08/17/20 05:28 Shock Home Meds: Home Meds Aspirin [Lise Chewable] 81 mg PO DAILY 07/13/18 [History] Metoprolol Tartrate 50 mg PO BID 07/13/18 [History] Omeprazole 20 mg PO DAILY 03/15/19 [History] lisinopriL [Lisinopril] 20 mg PO DAILY 09/06/19 [History] Isosorbide Mononitrate [Isosorbide Mononitrate ER] 30 mg PO DAILY 08/17/20 [History] atorvaSTATin Calcium [Lipitor] 40 mg PO DAILY 08/17/20 [History] Past Medical History HEENT History: Reports: Impaired Vision Cardiovascular History: Reports: High Cholesterol, Hypertension, Stents Gastrointestinal History: Reports: GERD Musculoskeletal History: Reports: Back Pain, Chronic Neurological History: Reports: None Endocrine/Metabolic History: Reports: Diabetes, Type II - Past Surgical History HEENT Surgical History: Reports: None Cardiovascular Surgical History: Reports: Coronary Artery Stent GI Surgical History: Reports: None Neurological Surgical History: Reports: C-Spine, Discectomy Musculoskeletal Surgical History: Reports: None Social & Family History - Family History Family Medical History: No Pertinent Family History - Caffeine Use Caffeine Use: Reports: Coffee, Soda ED ROS GENERAL - Review of Systems Review Of Systems: See Below Constitutional: Reports: No Symptoms HEENT: Reports: No Symptoms Respiratory: Reports: No Symptoms Cardiovascular: Reports: Chest Pain Endocrine: Reports: No Symptoms GI/Abdominal: Reports: No Symptoms : Reports: No Symptoms Musculoskeletal: Reports: No Symptoms Skin: Reports: No Symptoms Neurological: Reports: No Symptoms Psychiatric: Reports: No Symptoms Hematologic/Lymphatic: Reports: No Symptoms ED EXAM, GENERAL - Physical Exam Exam: See Below Exam Limited By: No Limitations General Appearance: Alert, Anxious, Mild Distress Eye Exam: Bilateral Eye: PERRL Ears: Normal External Exam Nose: Normal Inspection Throat/Mouth: Normal Inspection, Normal Lips, Normal Teeth, Normal Oropharynx, Normal Voice, No Airway Compromise Head: Atraumatic Neck: Normal Inspection, Full Range of Motion Respiratory/Chest: No Respiratory Distress, Lungs Clear, Normal Breath Sounds, No Accessory Muscle Use Cardiovascular: Normal Peripheral Pulses, Regular Rate, Rhythm, No Edema, No JVD Peripheral Pulses: 3+: Carotid (L), Carotid (R), Radial (L), Radial (R), Posterior Tibial (L), Posterior Tibial (R) GI/Abdominal: Normal Bowel Sounds, Soft, Non-Tender Back Exam: Normal Inspection, Full Range of Motion. No: CVA Tenderness (R), CVA Tenderness (L) Extremities: Normal Inspection, Normal Range of Motion, Non-Tender Neurological: Alert, Oriented, Normal Cognition, No Motor/Sensory Deficits Psychiatric: Normal Affect, Normal Mood Skin Exam: Warm, Dry, Intact Lymphatic: No Adenopathy Course - Vital Signs Last Recorded V/S: Last Vital Signs Temp 97.1 F 08/17/20 07:52 Pulse 72 08/17/20 07:52 Resp 18 08/17/20 07:52 BP 133/86 08/17/20 07:52 Pulse Ox 97 08/17/20 07:52 - Orders/Labs/Meds Labs: Laboratory Tests 08/16/20 08/16/20 Range/Units 23:21 23:21 WBC 8.6 (4.0-11.0) K/uL RBC 4.45 L (4.50-6.50) M/uL Hgb 13.8 (13.0-18.0) g/dL Hct 40.3 (40.0-54.0) % MCV 91 (76-96) fL MCH 31.0 (27.0-32.0) pg MCHC 34.2 (31.0-35.0) g/dL RDW 13.9 (11.0-16.0) % Plt Count 173 (150-400) K/uL MPV 10.6 H (6.0-10.0) fL Neut % (Auto) 57.7 (45.0-70.0) % Lymph % (Auto) 31.3 (20.0-40.0) % [place] % (Auto) 7.7 (3.0-10.0) % Eos % (Auto) 3.1 (1.0-5.0) % Baso % (Auto) 0.2 (0.0-0.5) % Neut # (Auto) 4.97 (2.00-7.50) K/uL Lymph # (Auto) 2.70 (1.50-4.00) K/uL [place] # (Auto) 0.66 (0.20-0.80) K/uL Eos # (Auto) 0.27 (0.04-0.40) K/uL Baso # (Auto) 0.02 (0.02-0.10) K/uL Sodium 136 (136-145) mmol/L Potassium 3.7 (3.5-5.1) mmol/L Chloride 98 (98-107) mmol/L Carbon Dioxide 24.3 (21.0-32.0) mmol/L Anion Gap 17.4 H (5.0-15.0) mmol/L BUN 16 (8-26) mg/dL Creatinine 1.20 (0.70-1.30) mg/dL Est Cr Clr Drug Dosing TNP Estimated GFR (MDRD) > 60 (>60) MLS/MIN BUN/Creatinine Ratio 13.3 (6-25) Glucose 196 H D (74-100) mg/dL Calcium 8.9 (8.5-10.1) mg/dL Total Bilirubin 0.3 D (0.0-1.0) mg/dL AST 16 (15-37) U/L ALT 37 (12-78) U/L Alkaline Phosphatase 79 (46-116) U/L Troponin I < 0.017 (0.000-0.060) ng/mL Total Protein 7.6 (6.4-8.2) g/dL Albumin 3.6 (3.4-5.0) g/dL Globulin 4.0 (2.2-4.2) g/dL Albumin/Globulin Ratio 0.9 (0.8-2.0) Meds: Medications Discontinued Medications Generic Name Dose Route Start Last Admin Trade Name Malq PRN Reason Stop Dose Admin Non-Formulary Medication 81 mg 08/17/20 09:30 08/17/20 09:35 Aspirin [Lise Chewable Aspirin] PO 81 mg DAILY [facility] Administration Non-Formulary Medication 40 mg 08/17/20 09:30 08/17/20 09:35 Atorvastatin Calcium [Lipitor] PO 40 mg DAILY [facility] Administration Non-Formulary Medication 20 mg 08/17/20 09:30 08/17/20 09:35 Lisinopril [Lisinopril] PO 20 mg DAILY [facility] Administration Non-Formulary Medication 50 mg 08/17/20 09:30 08/17/20 09:35 Metoprolol Tartrate [Metoprolol Tartrate] PO 50 mg BID [facility] Administration Non-Formulary Medication 20 mg 08/17/20 09:30 08/17/20 09:35 Omeprazole [Omeprazole] PO 20 mg DAILY [facility] Administration Departure - Departure Time of Disposition: 01:00 Disposition: Refer to Observation Condition: Good Clinical Impression: Chest pain Qualifiers: Chest pain type: precordial pain Qualified Code(s): R07.2 - Precordial pain - Assessment/Plan Plan: patient to be admitted for repeat troponins, he is agreeable to the plan. EHospitalist called, Dr. Hernandez will call back.
--- NOTE | 2020-08-17 05:26 | PCM.CONS ---
H&P History of Present Illness - General Admit Problem/Dx: Admission Diagnosis/Problem Admission Diagnosis/Problem Chest pain - Related Data Allergies/Adverse Reactions: Allergies Allergy/AdvReac Type Severity Reaction Status Date / Time iodine Allergy Anaphylactic Verified 12/21/19 18:34 Shock shellfish derived Allergy Anaphylactic Verified 12/21/19 18:34 Shock Home Medications: Home Meds Aspirin [Lise Chewable] 81 mg PO DAILY 07/13/18 [History] Metoprolol Tartrate 50 mg PO BID 07/13/18 [History] Omeprazole 20 mg PO DAILY 03/15/19 [History] lisinopriL [Lisinopril] 20 mg PO DAILY 09/06/19 [History] Past Medical History HEENT History: Reports: Impaired Vision Cardiovascular History: Reports: High Cholesterol, Hypertension, Stents Gastrointestinal History: Reports: GERD Musculoskeletal History: Reports: Back Pain, Chronic Neurological History: Reports: None Endocrine/Metabolic History: Reports: Diabetes, Type II - Past Surgical History HEENT Surgical History: Reports: None Cardiovascular Surgical History: Reports: Coronary Artery Stent GI Surgical History: Reports: None Neurological Surgical History: Reports: C-Spine, Discectomy Musculoskeletal Surgical History: Reports: None Social & Family History - Family History Family Medical History: No Pertinent Family History - Tobacco Use Tobacco Use Status *Q: Unknown Ever Used Tobacco - Caffeine Use Caffeine Use: Reports: Coffee, Soda Exam - Vital Signs Vital Signs: Last Vital Signs Temp 36.9 C 08/16/20 23:10 Pulse 74 08/17/20 02:33 Resp 18 08/17/20 02:33 BP 114/54 L 08/17/20 02:33 Pulse Ox 96 08/17/20 02:33 Weight: 116.12 kg - Patient Data Lab Results Last 24 hrs: Laboratory Results - last 24 hr 08/16/20 08/16/20 08/17/20 Range/Units 23:21 23:21 00:01 WBC 8.6 (4.0-11.0) K/uL RBC 4.45 L (4.50-6.50) M/uL Hgb 13.8 (13.0-18.0) g/dL Hct 40.3 (40.0-54.0) % MCV 91 (76-96) fL MCH 31.0 (27.0-32.0) pg MCHC 34.2 (31.0-35.0) g/dL RDW 13.9 (11.0-16.0) % Plt Count 173 (150-400) K/uL MPV 10.6 H (6.0-10.0) fL Neut % (Auto) 57.7 (45.0-70.0) % Lymph % (Auto) 31.3 (20.0-40.0) % [place] % (Auto) 7.7 (3.0-10.0) % Eos % (Auto) 3.1 (1.0-5.0) % Baso % (Auto) 0.2 (0.0-0.5) % Neut # (Auto) 4.97 (2.00-7.50) K/uL Lymph # (Auto) 2.70 (1.50-4.00) K/uL [place] # (Auto) 0.66 (0.20-0.80) K/uL Eos # (Auto) 0.27 (0.04-0.40) K/uL Baso # (Auto) 0.02 (0.02-0.10) K/uL Sodium 136 (136-145) mmol/L Potassium 3.7 (3.5-5.1) mmol/L Chloride 98 (98-107) mmol/L Carbon Dioxide 24.3 (21.0-32.0) mmol/L Anion Gap 17.4 H (5.0-15.0) mmol/L BUN 16 (8-26) mg/dL Creatinine 1.20 (0.70-1.30) mg/dL Est Cr Clr Drug Dosing TNP Estimated GFR (MDRD) > 60 (>60) MLS/MIN BUN/Creatinine Ratio 13.3 (6-25) Glucose 196 H D (74-100) mg/dL Calcium 8.9 (8.5-10.1) mg/dL Total Bilirubin 0.3 D (0.0-1.0) mg/dL AST 16 (15-37) U/L ALT 37 (12-78) U/L Alkaline Phosphatase 79 (46-116) U/L Troponin I < 0.017 (0.000-0.060) ng/mL Total Protein 7.6 (6.4-8.2) g/dL Albumin 3.6 (3.4-5.0) g/dL Globulin 4.0 (2.2-4.2) g/dL Albumin/Globulin Ratio 0.9 (0.8-2.0) SARS-CoV-2 RNA (TIMA) Negative (NEGATIVE) Result Diagrams: 08/16/20 23:21 08/16/20 23:21 Sepsis Event Note - Evaluation Sepsis Screening Result: No Definite Risk - Focused Exam Vital Signs: Vital Signs Temp Pulse Resp BP Pulse Ox 08/17/20 02:33 74 18 114/54 L 96 08/16/20 23:10 36.9 C 103 H 18 122/83 96 Consult PN Assessment/Plan Procedures: Procedures ASSAY OF CREATININE (01/28/20) ASSAY OF LIPASE (03/15/19) ASSAY OF MAGNESIUM (12/21/19) ASSAY OF TROPONIN QUANT (12/21/19) ASSAY TEST FOR BLOOD FECAL (05/29/18) CARDIAC REHAB/MONITOR (06/28/18) CARDIOVASCULAR STRESS TEST (09/16/19) COLONOSCOPY W/LESION REMOVAL (08/08/19) COMPLETE CBC W/AUTO DIFF WBC (12/21/19) COMPREHEN METABOLIC PANEL (12/21/19) CRYPTOSPORIDIUM AG IA (05/29/18) CT ABDOMEN W/O DYE (03/15/19) EGD BIOPSY SINGLE/MULTIPLE (08/08/19) EGD DIAGNOSTIC BRUSH WASH (10/04/18) ELECTROCARDIOGRAM TRACING (12/21/19) EMERGENCY DEPT VISIT (12/21/19) EMERGENCY DEPT VISIT (09/06/19) EMERGENCY DEPT VISIT (09/06/19) EMERGENCY DEPT VISIT (03/15/19) EMERGENCY DEPT VISIT (07/13/18) GLUCOSE BLOOD TEST (08/08/19) GLYCOSYLATED HEMOGLOBIN TEST (04/17/18) HT MUSCLE IMAGE SPECT MULT (09/16/19) LEUKOCYTE ASSESSMENT FECAL (05/29/18) METABOLIC PANEL TOTAL CA (05/28/18) OVA AND PARASITES SMEARS (05/29/18) PROTHROMBIN TIME (12/21/19) ROUTINE VENIPUNCTURE (01/28/20) SMEAR COMPLEX STAIN (05/29/18) THER/PROPH/DIAG INJ IV PUSH (04/01/18) TISSUE EXAM BY PATHOLOGIST (08/08/19) TTE W/DOPPLER COMPLETE (10/28/19) TX/PRO/DX INJ NEW DRUG ADDON (04/01/18) X-RAY EXAM CHEST 1 VIEW (09/06/19) X-RAY EXAM CHEST 2 VIEWS (12/21/19) Requesting Provider: Anali Aguilar NP. Date Consult Requested: 08/17/20 Reason for Consult: Chest pain Patient History Reviewed: Yes Admission H&P Reviewed: Yes Notified Requestor: Yes Time Spent (in minutes): 30
--- NOTE | 2020-08-17 05:37 | PCM.CONS ---
H&P History of Present Illness - General Date of Service: 08/17/20 Admit Problem/Dx: Admission Diagnosis/Problem Admission Diagnosis/Problem Chest pain Source of Information: Patient History Limitations: Reports: No Limitations - History of Present Illness Other HPI/Comments: VERNON Goldberg HOSPITALIST CONSULTATION NOTE: The [place] [facility] was contacted by the local/ER provider with a request for consultation for admission support and cross coverage services for t his patient. The ER provider requesting the consultation is Anali Aguilar NP. Reason for admission: Chest pain HPI or ER course: This 64-year-old gentleman with a history of coronary artery disease presented to the emergency room complaining of left anterior chest pain which radiated towards his left shoulder. He had 3 episodes of chest pain today that lasted several minutes. He did not respond satisfactorily to sublingual nitroglycerin tablets. He noted dizziness as a coinciding symptom. Noted a history of coronary stenting in the year 2017. His last cardiology assessment was in December 2019. He presented with normal vital signs. His physical exam is unremarkable. A troponin I level was negative his EKG showed no acute ischemic changes or signs of infarction. Due to his past medical history the ER provider felt it appropriate to admit the patient for monitoring for recurring chest pain and to serially trend cardiac enzymes. Refer to the ER encounter for more detail. - Related Data Allergies/Adverse Reactions: Allergies Allergy/AdvReac Type Severity Reaction Status Date / Time iodine Allergy Anaphylactic Verified 08/17/20 05:28 Shock shellfish derived Allergy Anaphylactic Verified 08/17/20 05:28 Shock Home Medications: Home Meds Aspirin [Lise Chewable] 81 mg PO DAILY 07/13/18 [History] Metoprolol Tartrate 50 mg PO BID 07/13/18 [History] Omeprazole 20 mg PO DAILY 03/15/19 [History] lisinopriL [Lisinopril] 20 mg PO DAILY 09/06/19 [History] Isosorbide Mononitrate [Isosorbide Mononitrate ER] 30 mg PO DAILY 08/17/20 [History] atorvaSTATin Calcium [Lipitor] 40 mg PO DAILY 08/17/20 [History] Past Medical History HEENT History: Reports: Impaired Vision Cardiovascular History: Reports: High Cholesterol, Hypertension, Stents Gastrointestinal History: Reports: GERD Musculoskeletal History: Reports: Back Pain, Chronic Neurological History: Reports: None Endocrine/Metabolic History: Reports: Diabetes, Type II - Past Surgical History HEENT Surgical History: Reports: None Cardiovascular Surgical History: Reports: Coronary Artery Stent GI Surgical History: Reports: None Neurological Surgical History: Reports: C-Spine, Discectomy Musculoskeletal Surgical History: Reports: None Social & Family History - Family History Family Medical History: No Pertinent Family History - Tobacco Use Tobacco Use Status *Q: Unknown Ever Used Tobacco - Caffeine Use Caffeine Use: Reports: Coffee, Soda H&P Review of Systems - Review of Systems: Review Of Systems: Comprehensive ROS is negative, except as noted in HPI. Exam - Exam Exam: Not Obtained Reason Not Obtained: Exam findings documented in the consult report. - Vital Signs Vital Signs: Last Vital Signs Temp 36.9 C 08/16/20 23:10 Pulse 74 08/17/20 02:33 Resp 18 08/17/20 02:33 BP 114/54 L 08/17/20 02:33 Pulse Ox 96 08/17/20 02:33 Weight: 116.12 kg - Exam General: Alert, Oriented, 4 HEENT: PERRLA, Hearing Intact, Mucosa Moist & [place], Nares Patent, Normal Nasal Septum, Posterior Pharynx Clear, Conjunctiva Clear, EOMI, EACs Clear, TMs Clear Neck: Supple, Trachea Midline, 2 Lungs: Clear to Auscultation, Normal Respiratory Effort Cardiovascular: Regular Rate, Regular Rhythm GI/Abdominal Exam: Normal Bowel Sounds, Soft, Non-Tender, No Organomegaly, No Distention, No Abnormal Bruit, No Mass, Pelvis Stable (Male) Exam: No Hernia, Normal Inspection, Normal Prostate, Circumcised Rectal (Males) Exam: Normal Exam, Normal Rectal Tone, Prostate Normal Back Exam: Normal Inspection, Full Range of Motion, NT Extremities: Normal Inspection, Normal Range of Motion, Non-Tender, No Pedal Edema, Normal Capillary Refill Skin: Warm, Dry, Intact Neurological: Cranial Nerves Intact, Reflexes Equal Bilateral Neuro Extensive - Mental Status: Alert, Oriented x3, Normal Mood/Affect, Normal Cognition Neuro Extensive - Motor, Sensory, Reflexes: CN II-XII Intact, Normal Gait, Normal Reflexes Psychiatric: Alert, Normal Affect, Normal Mood Physical Exam Comments:: EXAM: Performed via an interactive video with the assistance of the bedside nurse: GENERAL: The patient is alert and well oriented. His sensorium is clear. His affect is normal. The patient appears nondistressed. He claims no pain at the present time. Body habitus obese. HEENT: Pupils reported ERRL by the RN. Facial features symmetric. Mucous membranes normal-appearing. Oropharynx clear. NECK: Supple. There is no JVD. No bruits are heard. LUNGS: The breath sounds are symmetric. Breath sounds are heard in all lung pena, bilaterally. No rales or wheezes are heard. CV: There is a regular rhythm and rate. No murmurs, gallops, or rubs are heard. Pulses are palpable in all 4 extremities. The level is 2/4 based on the RN examination ABD: Bowel sounds are present. Soft. Nontender. EXTR there is no clubbing, cyanosis, or edema. SKIN: No rashes are seen. NEURO: Alert. Oriented x 3. CrN III - VII, XI, XII grossly intact. Moves all extremities without any significant focal deficit appreciated by the nurse. - Patient Data Lab Results Last 24 hrs: Laboratory Results - last 24 hr 08/16/20 08/16/20 08/17/20 Range/Units 23:21 23:21 00:01 WBC 8.6 (4.0-11.0) K/uL RBC 4.45 L (4.50-6.50) M/uL Hgb 13.8 (13.0-18.0) g/dL Hct 40.3 (40.0-54.0) % MCV 91 (76-96) fL MCH 31.0 (27.0-32.0) pg MCHC 34.2 (31.0-35.0) g/dL RDW 13.9 (11.0-16.0) % Plt Count 173 (150-400) K/uL MPV 10.6 H (6.0-10.0) fL Neut % (Auto) 57.7 (45.0-70.0) % Lymph % (Auto) 31.3 (20.0-40.0) % [place] % (Auto) 7.7 (3.0-10.0) % Eos % (Auto) 3.1 (1.0-5.0) % Baso % (Auto) 0.2 (0.0-0.5) % Neut # (Auto) 4.97 (2.00-7.50) K/uL Lymph # (Auto) 2.70 (1.50-4.00) K/uL Travis # (Auto) 0.66 (0.20-0.80) K/uL Eos # (Auto) 0.27 (0.04-0.40) K/uL Baso # (Auto) 0.02 (0.02-0.10) K/uL Sodium 136 (136-145) mmol/L Potassium 3.7 (3.5-5.1) mmol/L Chloride 98 (98-107) mmol/L Carbon Dioxide 24.3 (21.0-32.0) mmol/L Anion Gap 17.4 H (5.0-15.0) mmol/L BUN 16 (8-26) mg/dL Creatinine 1.20 (0.70-1.30) mg/dL Est Cr Clr Drug Dosing TNP Estimated GFR (MDRD) > 60 (>60) MLS/MIN BUN/Creatinine Ratio 13.3 (6-25) Glucose 196 H D (74-100) mg/dL Calcium 8.9 (8.5-10.1) mg/dL Total Bilirubin 0.3 D (0.0-1.0) mg/dL AST 16 (15-37) U/L ALT 37 (12-78) U/L Alkaline Phosphatase 79 (46-116) U/L Troponin I < 0.017 (0.000-0.060) ng/mL Total Protein 7.6 (6.4-8.2) g/dL Albumin 3.6 (3.4-5.0) g/dL Globulin 4.0 (2.2-4.2) g/dL Albumin/Globulin Ratio 0.9 (0.8-2.0) SARS-CoV-2 RNA (TIMA) Negative (NEGATIVE) Result Diagrams: 08/16/20 23:21 08/16/20 23:21 Sepsis Event Note - Evaluation Sepsis Screening Result: No Definite Risk - Focused Exam Vital Signs: Vital Signs Temp Pulse Resp BP Pulse Ox 08/17/20 02:33 74 18 114/54 L 96 08/16/20 23:10 36.9 C 103 H 18 122/83 96 *Q Meaningful Use (ADM) - VTE *Q VTE Pharmacological Contraindications *Q: Not Candidate LT Anticoag VTE Anticoagulation Contraindications: Med/TX Not Indicated/Need - VTE Risk Assess *Q Each Risk Factor Represents 1 Point: None Total Score 1 Point Risk Factors: 0 Consult PN Assessment/Plan Procedures: Procedures ASSAY OF CREATININE (01/28/20) ASSAY OF LIPASE (03/15/19) ASSAY OF MAGNESIUM (12/21/19) ASSAY OF TROPONIN QUANT (12/21/19) ASSAY TEST FOR BLOOD FECAL (05/29/18) CARDIAC REHAB/MONITOR (06/28/18) CARDIOVASCULAR STRESS TEST (09/16/19) COLONOSCOPY W/LESION REMOVAL (08/08/19) COMPLETE CBC W/AUTO DIFF WBC (12/21/19) COMPREHEN METABOLIC PANEL (12/21/19) CRYPTOSPORIDIUM AG IA (05/29/18) CT ABDOMEN W/O DYE (03/15/19) EGD BIOPSY SINGLE/MULTIPLE (08/08/19) EGD DIAGNOSTIC BRUSH WASH (10/04/18) ELECTROCARDIOGRAM TRACING (12/21/19) EMERGENCY DEPT VISIT (12/21/19) EMERGENCY DEPT VISIT (09/06/19) EMERGENCY DEPT VISIT (09/06/19) EMERGENCY DEPT VISIT (03/15/19) EMERGENCY DEPT VISIT (07/13/18) GLUCOSE BLOOD TEST (08/08/19) GLYCOSYLATED HEMOGLOBIN TEST (04/17/18) HT MUSCLE IMAGE SPECT MULT (09/16/19) LEUKOCYTE ASSESSMENT FECAL (05/29/18) METABOLIC PANEL TOTAL CA (05/28/18) OVA AND PARASITES SMEARS (05/29/18) PROTHROMBIN TIME (12/21/19) ROUTINE VENIPUNCTURE (01/28/20) SMEAR COMPLEX STAIN (05/29/18) THER/PROPH/DIAG INJ IV PUSH (04/01/18) TISSUE EXAM BY PATHOLOGIST (08/08/19) TTE W/DOPPLER COMPLETE (10/28/19) TX/PRO/DX INJ NEW DRUG ADDON (04/01/18) X-RAY EXAM CHEST 1 VIEW (09/06/19) X-RAY EXAM CHEST 2 VIEWS (12/21/19) (1) Chest pain SNOMED Code(s): 44384615 Code(s): R07.9 - CHEST PAIN, UNSPECIFIED Priority: High Current Visit: Yes Qualifiers: Chest pain type: precordial pain Qualified Code(s): R07.2 - Precordial pain (2) Coronary artery disease SNOMED Code(s): 33243142 Code(s): I25.10 - ATHSCL HEART DISEASE OF [place] CORONARY ARTERY W/O ANG PCTRS Priority: Medium Current Visit: Yes Onset Date: ~08/16/20 Problem List Initiated/Reviewed/Updated: Yes My Orders Last 24 Hours: ASSESSMENT: 1. Recurrent chest pain. Suboptimal response to sublingual nitroglycerin. 2. History of coronary artery disease with prior intervention (PCI). 3. Other PMH as discussed above. PLANS: 1. Review admission orders. 2. Reassess patient as needed for any acute status changes, especially recurrence of chest pain. 3. Agree with serial troponin I assessments to establish presence of upward trends. RECOMMENDATIONS: 1. Repeat EKGs with chest pain 2. Consider the pros and cons of a exercise cardiac stress test if the troponin I levels are negative and the patient has no signs or symptoms of unstable angina. 3. Lipid profile if not done within the last 6 to 12 months. 4. DVT prevention steps 5. Reconciliation of the home medication list when the list has been verified for continuation. I have reviewed the case in consultation. Information is gathered from conversations with the local provider, a review of the patient's chart, and by a patient evaluation. Based on the current information and the patients current medical condition, I certify the patient meets criteria for: [ ] Acute inpatient status with the expectation of a patient stay of more than 2 midnights, but less than 96 hrs. [XX ] Swing bed. [ ] Observation status with an expected stay of less than 2 midnights. Thank you for including Vernon Ibarra in the patients care. This service is available for further assistance as requested by your care team by calling [phone]. Requesting Provider: Anali delacruz NP Date Consult Requested: 08/17/20 Reason for Consult: Chest pain Patient History Reviewed: Yes Admission H&P Reviewed: Yes Consult Result/Summary:: VERNON IBARRA CONSULTATION NOTE: The [facility] merchantist was contacted by the local/ER provider with a request for consultation for admission support and cross coverage services for this patient. The ER provider requesting the consultation is Anali Aguilar NP. Reason for admission: Chest pain HPI or ER course: This 64-year-old gentleman with a history of coronary artery disease presented to the emergency room complaining of left anterior chest pain which radiated towards his left shoulder. He had 3 episodes of chest pain today that lasted several minutes. He did not respond satisfactorily to sublingual nitroglycerin tablets. He noted dizziness as a coinciding symptom. Noted a history of coronary stenting in the year 2017. His last cardiology assessment was in December 2019. He presented with normal vital signs. His physical exam is unremarkable. A troponin I level was negative his EKG showed no acute ischemic changes or signs of infarction. Due to his past medical history the ER provider felt it appropriate to admit the patient for monitoring for recurring chest pain and to serially trend cardiac enzymes. Refer to the ER encounter for more det ail. Home Medications: The home medication list was reviewed in the EMR. If verified for continuation it may be reconciled at this time. Pertinent Medical History: CAD; PCI 2018. DM 2; dyslipidemia; anxiety. Pertinent Social History: Reviewed in ER encounter note, and in available OPD progress notes. EXAM: Performed via an interactive video with the assistance of the bedside nurse: GENERAL: The patient is alert and well oriented. His sensorium is clear. His affect is normal. The patient appears nondistressed. He claims no pain at the present time. Body habitus obese. HEENT: Pupils reported ERRL by the RN. Facial features symmetric. Mucous membranes normal-appearing. Oropharynx clear. NECK: Supple. There is no JVD. No bruits are heard. LUNGS: The breath sounds are symmetric. Breath sounds are heard in all lung pena, bilaterally. No rales or wheezes are heard. CV: There is a regular rhythm and rate. No murmurs, gallops, or rubs are heard. Pulses are palpable in all 4 extremities. The level is 2/4 based on the RN examination ABD: Bowel sounds are present. Soft. Nontender. EXTR there is no clubbing, cyanosis, or edema. SKIN: No rashes are seen. NEURO: Alert. Oriented x 3. CrN III - VII, XI, XII grossly intact. Moves all extremities without any significant focal deficit appreciated by the nurse. Pertinent Lab: Reviewed in the EMR. EKG Findings: Available ECG reviewed in the EMR. Available Radiology Reports: Not available. ASSESSMENT: 1. Recurrent chest pain. Suboptimal response to sublingual nitroglycerin. 2. History of coronary artery disease with prior intervention (PCI). 3. Other PMH as discussed above. PLANS: 1. Review admission orders. 2. Reassess patient as needed for any acute status changes, especially recurrence of chest pain. 3. Agree with serial troponin I assessments to establish presence of upward trends. RECOMMENDATIONS: 1. Repeat EKGs with chest pain 2. Consider the pros and cons of a exercise cardiac stress test if the troponin I levels are negative and the patient has no signs or symptoms of unstable angina. 3. Lipid profile if not done within the last 6 to 12 months. 4. DVT prevention steps 5. Reconciliation of the home medication list when the list has been verified for continuation. I have reviewed the case in consultation. Information is gathered from conversations with the local provider, a review of the patient's chart, and by a patient evaluation. Based on the current information and the patients current medical condition, I certify the patient meets criteria for: [ ] Acute inpatient status with the expectation of a patient stay of more than 2 midnights, but less than 96 hrs. [XX ] Swing bed. [ ] Observation status with an expected stay of less than 2 midnights. Thank you for including Vernon Ibarra in the patients care. This service is available for further assistance as requested by your care team by calling [phone]. Notified Requestor: Yes Time Spent (in minutes): 30
--- NOTE | 2020-08-17 07:47 | CR ---
Date of Service: 08/17/20 Clinical Data: chest pain AP CHEST: Comparison is made to a prior exam dated 12/21/19. The heart size is normal. There is a calcified nodule in the left lower lung consistent with prior granulomatous disease. The lungs are otherwise clear. No pneumothorax. No pleural effusions. No evidence of acute intrathoracic disease. [id number] [facility]
[2020-08-17 08:00] VITALS: BP 133/86; PULSE 72
--- NOTE | 2020-08-17 09:17 | PCM.PN ---
- General Info Date of Service: 08/17/20 Subjective Update: This is a 64yo M with recent chest pain symptoms with no complaints this am. He notes his symptoms have fully resolved. He is alert, oriented and has a good appetite. Functional Status: Reports: Pain Controlled, Tolerating Diet, Ambulating - Review of Systems General: Reports: No Symptoms HEENT: Reports: No Symptoms Pulmonary: Reports: No Symptoms Cardiovascular: Reports: No Symptoms Gastrointestinal: Reports: No Symptoms Genitourinary: Reports: No Symptoms Musculoskeletal: Reports: No Symptoms - Patient Data Vitals - Most Recent: Last Vital Signs Temp 36.2 C 08/17/20 07:52 Pulse 72 08/17/20 07:52 Resp 18 08/17/20 07:52 BP 133/86 08/17/20 07:52 Pulse Ox 97 08/17/20 07:52 Weight - Most Recent: 116.12 kg Lab Results Last 24 Hours: Laboratory Results - last 24 hr 08/16/20 08/16/20 08/17/20 Range/Units 23:21 23:21 00:01 WBC 8.6 (4.0-11.0) K/uL RBC 4.45 L (4.50-6.50) M/uL Hgb 13.8 (13.0-18.0) g/dL Hct 40.3 (40.0-54.0) % MCV 91 (76-96) fL MCH 31.0 (27.0-32.0) pg MCHC 34.2 (31.0-35.0) g/dL RDW 13.9 (11.0-16.0) % Plt Count 173 (150-400) K/uL MPV 10.6 H (6.0-10.0) fL Neut % (Auto) 57.7 (45.0-70.0) % Lymph % (Auto) 31.3 (20.0-40.0) % Mineral % (Auto) 7.7 (3.0-10.0) % Eos % (Auto) 3.1 (1.0-5.0) % Baso % (Auto) 0.2 (0.0-0.5) % Neut # (Auto) 4.97 (2.00-7.50) K/uL Lymph # (Auto) 2.70 (1.50-4.00) K/uL Mineral # (Auto) 0.66 (0.20-0.80) K/uL Eos # (Auto) 0.27 (0.04-0.40) K/uL Baso # (Auto) 0.02 (0.02-0.10) K/uL Sodium 136 (136-145) mmol/L Potassium 3.7 (3.5-5.1) mmol/L Chloride 98 (98-107) mmol/L Carbon Dioxide 24.3 (21.0-32.0) mmol/L Anion Gap 17.4 H (5.0-15.0) mmol/L BUN 16 (8-26) mg/dL Creatinine 1.20 (0.70-1.30) mg/dL Est Cr Clr Drug Dosing TNP Estimated GFR (MDRD) > 60 (>60) MLS/MIN BUN/Creatinine Ratio 13.3 (6-25) Glucose 196 H D (74-100) mg/dL Calcium 8.9 (8.5-10.1) mg/dL Total Bilirubin 0.3 D (0.0-1.0) mg/dL AST 16 (15-37) U/L ALT 37 (12-78) U/L Alkaline Phosphatase 79 (46-116) U/L Troponin I < 0.017 (0.000-0.060) ng/mL Total Protein 7.6 (6.4-8.2) g/dL Albumin 3.6 (3.4-5.0) g/dL Globulin 4.0 (2.2-4.2) g/dL Albumin/Globulin Ratio 0.9 (0.8-2.0) SARS-CoV-2 RNA (TIMA) Negative (NEGATIVE) 08/17/20 Range/Units 06:00 WBC (4.0-11.0) K/uL RBC (4.50-6.50) M/uL Hgb (13.0-18.0) g/dL Hct (40.0-54.0) % MCV (76-96) fL MCH (27.0-32.0) pg MCHC (31.0-35.0) g/dL RDW (11.0-16.0) % Plt Count (150-400) K/uL MPV (6.0-10.0) fL Neut % (Auto) (45.0-70.0) % Lymph % (Auto) (20.0-40.0) % Mineral % (Auto) (3.0-10.0) % Eos % (Auto) (1.0-5.0) % Baso % (Auto) (0.0-0.5) % Neut # (Auto) (2.00-7.50) K/uL Lymph # (Auto) (1.50-4.00) K/uL Mineral # (Auto) (0.20-0.80) K/uL Eos # (Auto) (0.04-0.40) K/uL Baso # (Auto) (0.02-0.10) K/uL Sodium (136-145) mmol/L Potassium (3.5-5.1) mmol/L Chloride (98-107) mmol/L Carbon Dioxide (21.0-32.0) mmol/L Anion Gap (5.0-15.0) mmol/L BUN (8-26) mg/dL Creatinine (0.70-1.30) mg/dL Est Cr Clr Drug Dosing Estimated GFR (MDRD) (>60) MLS/MIN BUN/Creatinine Ratio (6-25) Glucose (74-100) mg/dL Calcium (8.5-10.1) mg/dL Total Bilirubin (0.0-1.0) mg/dL AST (15-37) U/L ALT (12-78) U/L Alkaline Phosphatase (46-116) U/L Troponin I < 0.017 (0.000-0.060) ng/mL Total Protein (6.4-8.2) g/dL Albumin (3.4-5.0) g/dL Globulin (2.2-4.2) g/dL Albumin/Globulin Ratio (0.8-2.0) SARS-CoV-2 RNA (TIMA) (NEGATIVE) - Exam General: Alert, Oriented HEENT: Pupils Equal, Pupils Reactive, EOMI Neck: Supple Lungs: Clear to Auscultation, Normal Respiratory Effort Cardiovascular: Regular Rate, Regular Rhythm GI/Abdominal Exam: Normal Bowel Sounds Extremities: Normal Inspection Sepsis Event Note - Evaluation Sepsis Screening Result: No Definite Risk - Focused Exam Vital Signs: Vital Signs Temp Temp Pulse Resp BP Pulse Ox 08/17/20 07:52 36.2 C 72 18 133/86 97 08/17/20 02:33 74 18 114/54 L 96 08/16/20 23:10 36.9 C 103 H 18 122/83 96 - Problem List & Annotations (1) Chest pain SNOMED Code(s): 51296922 Code(s): R07.9 - CHEST PAIN, UNSPECIFIED Status: Acute Priority: High Current Visit: Yes Qualifiers: Chest pain type: precordial pain Qualified Code(s): R07.2 - Precordial pain (2) Coronary artery disease SNOMED Code(s): 34541841 Code(s): I25.10 - ATHSCL HEART DISEASE OF [place] CORONARY ARTERY W/O ANG PCTRS Status: Acute Priority: Medium Current Visit: Yes Onset Date: ~08/16/20 (3) Unstable angina SNOMED Code(s): 6373897, 717105465 Code(s): I20.0 - UNSTABLE ANGINA Status: Suspected Priority: High Current Visit: Yes - Problem List Review Problem List Initiated/Reviewed/Updated: Yes - My Orders Last 24 Hours: My Active Orders 08/17/20 11:21 TROPONIN I [CHEM] Routine - Plan Plan:: Patient to f/u third set of troponins at 11am today. Counseled on f/u results and further management as indicated. No changes to plan of care.
[2020-08-17] MEDS: Non-Formulary Medication 1 Each (Lisinopril [Lisinopril] 20 MG) PO SCH (09:35)
[2020-08-17] MEDS: ATORVASTATIN CALCIUM 40 MG PO SCH (09:35)
[2020-08-17] MEDS: Non-Formulary Medication 1 Each (Metoprolol Tartrate [Metoprolol Tartrate] 50 MG) PO SCH (09:35)
[2020-08-17] MEDS: Non-Formulary Medication 1 Each (Aspirin [Bayer Chewable Aspirin] 81 MG) PO SCH (09:35)
[2020-08-17] MEDS: Non-Formulary Medication 1 Each (Omeprazole [Omeprazole] 20 MG) PO SCH (09:35)
--- NOTE | 2020-08-18 13:07 | PCM.DCSUM1 ---
Discharge Summary - Discharge Data Discharge Date: 08/17/20 Discharge Disposition: Home, Self-Care 01 Condition: Stable - Referral to Home Health Primary Care Physician: Gilbert Lugo MD - Discharge Diagnosis/Problem(s) (1) Chest pain SNOMED Code(s): 31588017 ICD Code: R07.9 - CHEST PAIN, UNSPECIFIED Status: Acute Priority: High Qualifiers: Chest pain type: precordial pain Qualified Code(s): R07.2 - Precordial pain (2) Coronary artery disease SNOMED Code(s): 51270932 ICD Code: I25.10 - ATHSCL HEART DISEASE OF [place] CORONARY ARTERY W/O ANG PCTRS Status: Acute Priority: Medium Onset Date: ~08/16/20 (3) Unstable angina SNOMED Code(s): 4592373, 846020645 ICD Code: I20.0 - UNSTABLE ANGINA Status: Suspected Priority: High - Patient Instructions Diet: Usual Diet as Tolerated Activity: As Tolerated - Discharge Plan Home Medications: Home Meds Aspirin [Lise Chewable] 81 mg PO DAILY 07/13/18 [History] Metoprolol Tartrate 50 mg PO BID 07/13/18 [History] Omeprazole 20 mg PO DAILY 03/15/19 [History] lisinopriL [Lisinopril] 20 mg PO DAILY 09/06/19 [History] Isosorbide Mononitrate [Isosorbide Mononitrate ER] 30 mg PO DAILY 08/17/20 [History] atorvaSTATin Calcium [Lipitor] 40 mg PO DAILY 08/17/20 [History] Patient Handouts: Nonspecific Chest Pain, Adult, [id number] Forms: ED Department Discharge Referrals: PCP,None [Ordering Only Provider] - - Discharge Summary/Plan Comment DC Time >30 min.: No Discharge Summary/Plan Comment: Discussed f/u in clinic for stress test setup and further management. Rtc or ER if symptoms return. - Patient Data Vitals - Most Recent: Last Vital Signs Temp 36.2 C 08/17/20 07:52 Pulse 72 08/17/20 07:52 Resp 18 08/17/20 07:52 BP 133/86 08/17/20 07:52 Pulse Ox 97 08/17/20 07:52 Weight - Most Recent: 116.12 kg JENNIE Results - Last 24 hrs: Microbiology 08/17/20 Unknown MRSA Culture - Final Nares, Left NO MRSA ISOLATED Med Orders - Current: Current Medications Discontinued Medications Non-Formulary Medication (Aspirin [Lise Chewable Aspirin]) 81 mg PO DAILY [facility] Last Admin: 08/17/20 09:35 Dose: 81 mg Documented by: Non-Formulary Medication (Atorvastatin Calcium [Lipitor]) 40 mg PO DAILY [facility] Last Admin: 08/17/20 09:35 Dose: 40 mg Documented by: Non-Formulary Medication (Lisinopril [Lisinopril]) 20 mg PO DAILY [facility] Last Admin: 08/17/20 09:35 Dose: 20 mg Documented by: Non-Formulary Medication (Metoprolol Tartrate [Metoprolol Tartrate]) 50 mg PO BID [facility] Last Admin: 08/17/20 09:35 Dose: 50 mg Documented by: Non-Formulary Medication (Omeprazole [Omeprazole]) 20 mg PO DAILY [facility] Last Admin: 08/17/20 09:35 Dose: 20 mg Documented by: *Q Meaningful Use (DIS) - VTE *Q VTE Pharmacological Contraindications *Q: Not Candidate LT Anticoag VTE Anticoagulation Contraindications: Med/TX Not Indicated/Need
== END 2020-08-17 14:00 | disposition home or self-care (01) ==
LOC: LB.ED 23:10 → LB.MS 23:41 → UNDOADMOB 08-17 00:20
PROVIDERS: ADMIT Nurse Practitioner; ATTEND Nurse Practitioner
DX: R07.2 Precordial pain (principal); I25.10 Atherosclerotic heart disease of native coronary artery without angina pectoris; Z20.828 Contact with and (suspected) exposure to other viral communicable diseases; E11.9 Type 2 diabetes mellitus without complications; I10 Essential (primary) hypertension; E78.5 Hyperlipidemia, unspecified; Z91.041 Radiographic dye allergy status; Z91.013 Allergy to seafood
CPT/HCPCS: 36415; 71045; 80053; 84484; 85025; 87070; 93005; 99285-25; A9270-GY; G0378; U0002

== ENCOUNTER 2022-04-09 09:55 | Emergency (ER) | payer MEDICARE ==
[2022-04-09] MEDS: Aspirin 81 MG Tab.Chew PO ONE (10:00)
[2022-04-09] MEDS: Ondansetron 4 MG/2 ML SDV IVPUSH ONE (10:03)
[2022-04-09] MEDS ORDERED: Sodium Chloride 0.9% 10 ML Syringe FLUSH PRN (10:10)
[2022-04-09] MEDS: Morphine 2 MG/ML SYRINGE IVPUSH ONE (10:15)
[2022-04-09] MEDS: Nitroglycerin 0.4 MG Tab.SL SL PRN (10:20)
[2022-04-09 10:33] LABS: TROPONIN I HIGH SENSITIVITY 7.1 pg/ml (<=60.4)
[2022-04-09] MEDS: Magnesium Oxide 400 MG Tab PO ONE (10:59)
[2022-04-09] MEDS: GI Cocktail Oral Solution 30 ML PO ONE (11:04)
== END 2022-04-09 18:53 | disposition home or self-care (01) ==
LOC: LB.ED 09:55
DX: R07.89 Other chest pain (principal); E78.00 Pure hypercholesterolemia, unspecified; I10 Essential (primary) hypertension; K21.9 Gastro-esophageal reflux disease without esophagitis; E11.9 Type 2 diabetes mellitus without complications; Z91.041 Radiographic dye allergy status; Z91.013 Allergy to seafood; Z79.82 Long term (current) use of aspirin; Z79.899 Other long term (current) drug therapy; Z20.822 Contact with and (suspected) exposure to COVID-19
CPT/HCPCS: 36415; 71045; 80053; 83735; 84484; 85025; 85610; 85730; 93005; 93010; 96374; 96375; 99282; 99285-25; A9270-GY; J2270; J2405; U0002

== ENCOUNTER 2024-09-19 10:03 | Day surgery (SDC) | payer MEDICARE ==
[~2024-09-19 10:03] MED LIST changes: -Sodium Chloride 0.9% 1,000 ML IV SCH
[2024-09-19] MEDS: Sodium Chloride 0.9% 1,000 ML IV SCH (10:52)
[2024-09-19] MEDS ORDERED: Propofol 200 MG/20 ML SDV ONE (12:45)
== END 2024-09-19 14:05 | disposition home or self-care (01) ==
LOC: LB.SDS 10:03
PROVIDERS: ATTEND Surgery
DX: Z12.11 Encounter for screening for malignant neoplasm of colon (principal); D12.5 Benign neoplasm of sigmoid colon; K62.1 Rectal polyp; K57.30 Diverticulosis of large intestine without perforation or abscess without bleeding; I10 Essential (primary) hypertension; E11.9 Type 2 diabetes mellitus without complications; K21.9 Gastro-esophageal reflux disease without esophagitis; I25.10 Atherosclerotic heart disease of native coronary artery without angina pectoris; E78.5 Hyperlipidemia, unspecified; Z79.82 Long term (current) use of aspirin; Z79.84 Long term (current) use of oral hypoglycemic drugs; Z79.899 Other long term (current) drug therapy
CPT/HCPCS: 82947; J2704; J7030

== ENCOUNTER 2025-06-29 15:58 | Emergency (ER) | payer MEDICARE ==
[2025-06-29] MEDS: Nitroglycerin 0.4 MG Tab.SL SL PRN (16:04)
[2025-06-29] MEDS ORDERED: Sodium Chloride 0.9% 10 ML Syringe FLUSH PRN (16:04)
[2025-06-29 16:15] LABS: BASOPHILS ABSOLUTE AUTO 0.18 K/uL (0.02-0.10); BASOPHILS PERCENT AUTO 2.4 % (0.0-0.5); EOSINOPHILS ABSOLUTE AUTO 0.23 K/uL (0.04-0.40); EOSINOPHILS PERCENT AUTO 3.0 % (1.0-5.0); LYMPHOCYTES ABSOLUTE AUTO 2.20 K/uL (1.50-4.00); LYMPHOCYTES PERCENT AUTO 28.9 % (20.0-40.0); MEAN PLATELET VOLUME 10.2 fL (6.0-10.0); MONOCYTES ABSOLUTE AUTO 0.71 K/uL (0.20-0.80); MONOCYTES PERCENT AUTO 9.3 % (3.0-10.0); NEUTROPHILS ABSOLUTE AUTO 4.29 K/uL (2.00-7.50); NEUTROPHILS PERCENT AUTO 56.4 % (45.0-70.0); PLATELET COUNT,PLT 285 K/uL (150-400); RED BLOOD CELL COUNT 4.37 M/uL (4.50-6.50); RED CELL DISTRIBUTION WIDTH 14.9 % (11.0-16.0); WHITE BLOOD CELL COUNT,WBC 7.6 K/uL (4.0-11.0)
[2025-06-29] MEDS: GI Cocktail Oral Solution 30 ML PO ONE (16:29)
[2025-06-29 16:43] LABS: ASPARTATE AMNIOTRANSFERASE,AST 4.0 U/L (15-37); TROPONIN I HIGH SENSITIVITY 4.7 pg/ml (<=60.4)
[2025-06-29 16:57] LABS: ALANINE AMINOTRANSFERASE,ALT 29.0 U/L (12-78); BILIRUBIN TOTAL 0.3 mg/dL (0.0-1.0); BLOOD UREA NITROGEN,BUN 20.0 mg/dL (8-26); CARBON DIOXIDE,CO2 28.2 mmol/L (21.0-32.0); CHLORIDE,CL 98.0 mmol/L (98-107); CREATININE 1.7 mg/dL (0.70-1.30); EST CRCL DRUG DOSING (CG) 44.38 mL/min; ESTIMATED GFR 43.0 mL/min (>60); GLUCOSE RANDOM 215.0 mg/dL (74-100); POTASSIUM,K 4.2 mmol/L (3.5-5.1); PROTEIN TOTAL,TP 8.5 g/dL (6.4-8.2); SODIUM,NA 138.0 mmol/L (136-145)
[2025-06-29 16:58] LABS: A/G RATIO 0.9 (0.8-2.0)
== END 2025-06-29 17:36 | disposition home or self-care (01) ==
LOC: LB.ED 15:58
DX: R10.13 Epigastric pain (principal); R79.89 Other specified abnormal findings of blood chemistry; E78.00 Pure hypercholesterolemia, unspecified; I10 Essential (primary) hypertension; Z95.5 Presence of coronary angioplasty implant and graft; E11.9 Type 2 diabetes mellitus without complications; Z91.041 Radiographic dye allergy status; Z91.013 Allergy to seafood; Z79.82 Long term (current) use of aspirin; Z79.899 Other long term (current) drug therapy; Z79.84 Long term (current) use of oral hypoglycemic drugs
CPT/HCPCS: 36415; 71045; 80053; 83690; 83735; 84484; 85025; 93005; 99285; A9270-GY; J7040